=== PATIENT | male | born 1985 | race Caucasian/White ===

== ENCOUNTER 2020-01-07 22:22 | Observation (INO) | payer BC, OTHER ==
[~2020-01-07] VITALS: Ht 167.7 cm; Wt 104.3 kg
[2020-01-07] MEDS ORDERED: NS IV 1000 ML 1,000 ML IV SCH (22:35)
[2020-01-07 22:44] LABS: BASOPHILS % (AUTO) 0 % (0-10); EOSINOPHILS # (AUTO) 0.1 10^3/uL (0.0-0.3); EOSINOPHILS % (AUTO) 1 % (0-10); HEMATOCRIT 40 % (40-54); HEMOGLOBIN 14.4 G/DL (13.3-17.7); LYMPHOCYTES # (AUTO) 1.8 X 10^3 (1.0-4.0); LYMPHOCYTES % (AUTO) 23 % (12-44); MEAN CORPUSCULAR HEMOGLOBIN 31 PG (25-34); MEAN CORPUSCULAR HGB CONC 37 G/DL (32-36); MEAN CORPUSCULAR VOLUME 84 FL (80-99); MEAN PLATELET VOLUME 11.2 FL (7.4-10.4); MONOCYTES # (AUTO) 0.6 X 10^3 (0.0-1.0); MONOCYTES % (AUTO) 8 % (0-12); NEUTROPHILS # (AUTO) 5.6 X 10^3 (1.8-7.8); NEUTROPHILS % (AUTO) 69 % (42-75); PLATELET COUNT 193 10^3/uL (130-400); RED CELL DISTRIBUTION WIDTH 12.2 % (10.0-14.5); WHITE BLOOD COUNT 8.1 10^3/uL (4.3-11.0)
[2020-01-07 23:07] LABS: ALBUMIN 3.9 GM/DL (3.2-4.5)
[2020-01-07 23:08] LABS: CHLORIDE 97 MMOL/L (98-107); SODIUM 130 MMOL/L (135-145)
[2020-01-07 23:09] LABS: CALCIUM 8.8 MG/DL (8.5-10.1)
[2020-01-07 23:10] LABS: TOTAL PROTEIN 6.9 GM/DL (6.4-8.2)
[2020-01-07 23:11] LABS: CARBON DIOXIDE 19 MMOL/L (21-32)
[2020-01-07 23:12] LABS: BILIRUBIN,TOTAL 0.3 MG/DL (0.1-1.0)
[2020-01-07 23:13] LABS: ALKALINE PHOSPHATASE 139 U/L (40-136)
[2020-01-07 23:14] LABS: CREATININE SERUM 1.19 MG/DL (0.60-1.30); GLUCOSE 665 MG/DL (70-105)
[2020-01-07 23:15] LABS: BUN/CREATININE RATIO 9
[2020-01-07 23:16] LABS: ALANINE AMINOTRANSFERASE 38 U/L (0-55)
[2020-01-07 23:25] LABS: GFR ESTIMATED > 60
[2020-01-08] MEDS ORDERED: metFORMIN 500 MG (GLUCOPHAGE) TAB PO ONE (00:45)
--- NOTE | 2020-01-08 00:49 | ED General ---
General Chief Complaint: General Problems/Pain Stated Complaint: HIGH BLOOD SUGAR Nursing Triage Note: Patient ambulatory to ER room 7 with complaint of high blood sugar. Patient states he has no history of diabetes but this evening when his dad was checking his own blood sugar the patient decided to check his blood sugar and the reading was greater than 600. Patient denies any symptoms and states he feels just fine. Patient denies any recent illnesses. Nursing Sepsis Screen: No Definite Risk Source of Information: Patient Exam Limitations: No Limitations History of Present Illness Date Seen by Provider: Jan 07, 2020 Time Seen by Provider: 22:27 Initial Comments This 34-year-old gentleman presents to the emergency room with concerns about elevated blood sugar. He was checking his own blood sugar with his father's glucometer and found the initial blood sugar to be 357. He waited a little while and rechecked it. His glucometer then read "high". He denies any signs or symptoms of acute infectious illness. His only symptom was a little bit of increased urinary frequency during the day. Allergies and Home Medications Allergies Coded Allergies: No Known Drug Allergies (Unverified , 01/07/20) Patient Home Medication List Home Medication List Reviewed: Yes Review of Systems Review of Systems Constitutional: no symptoms reported EENTM: no symptoms reported Respiratory: no symptoms reported Cardiovascular: no symptoms reported Gastrointestinal: no symptoms reported Genitourinary: see HPI Musculoskeletal: no symptoms reported Skin: no symptoms reported Psychiatric/Neurological: No Symptoms Reported Hematologic/Lymphatic: No Symptoms Reported Immunological/Allergic: no symptoms reported Past Vhldmzv-Wpsomn-Rcvjgu Hx Past Med/Social Hx: Reviewed Nursing Past Med/Soc Hx Patient Social History Alcohol Use: Denies Use Recreational Drug Use: No Smoking Status: Current Everyday Smoker Type Used: Electronic/Vapor 2nd Hand Smoke Exposure: Yes Recent Foreign Travel: No Contact w/Someone Who Travel: No Recent Infectious Disease Expo: No Recent Hopitalizations: No Physical Abuse: No Sexual Abuse: No Mistreated: No Fear: No Immunizations Up To Date PED Vaccines UTD: Yes Seasonal Allergies Seasonal Allergies: No Past Medical History Surgeries: No Respiratory: No Cardiac: No Neurological: No Genitourinary: No Gastrointestinal: No Musculoskeletal: No Endocrine: No HEENT: No Cancer: No Psychosocial: No Integumentary: No Physical Exam Vital Signs Vital Signs - First Documented 01/07/20 22:30 Temp 37.4 Pulse 90 Resp 18 B/P (MAP) 144/87 (106) Pulse Ox 96 O2 Delivery Room Air Capillary Refill : Less Than 3 Seconds Height, Weight, BMI Height: '" Weight: lbs. oz. kg; 39.00 BMI Method: General Appearance: No Apparent Distress, WD/WN HEENT: PERRL/EOMI, Normal ENT Inspection, Pharynx Normal Neck: Normal Inspection, Carotid Bruit Respiratory: Chest Non Tender, Lungs Clear, Normal Breath Sounds, No Accessory Muscle Use Cardiovascular: Regular Rate, Rhythm, No Edema, No Murmur Extremity: Normal Inspection, No Pedal Edema Neurologic/Psychiatric: Alert, Oriented x3, No Motor/Sensory Deficits, Normal Mood/Affect, acoustical logging engineer II-XII Norm as Tested Progress/Results/Core Measures Suspected Sepsis Recent Fever Within 48 Hours: No Infection Criteria Present: None New/Unexplained Altered Menta: No Sepsis Screen: No Definite Risk SIRS Temperature: Pulse: 90 Respiratory Rate: 18 Laboratory Tests 01/07/20 22:38: White Blood Count 8.1 Blood Pressure 144 /87 Mean: 106 Laboratory Tests 01/07/20 22:38: Creatinine 1.19, Platelet Count 193, Total Bilirubin 0.3 Results/Orders Lab Results Laboratory Tests Test 01/07/20 22:32 01/07/20 22:38 01/07/20 23:39 01/08/20 00:00 Range/Units Glucometer > 600 *H 488 *H 70-110 MG/DL White Blood Count 8.1 4.3-11.0 10^3/uL Red Blood Count 4.71 4.35-5.85 10^6/uL Hemoglobin 14.4 13.3-17.7 G/DL Hematocrit 40 40-54 % Mean Corpuscular Volume 84 80-99 FL Mean Corpuscular Hemoglobin 31 25-34 PG Mean Corpuscular Hemoglobin Concent 37 H 32-36 G/DL Red Cell Distribution Width 12.2 10.0-14.5 % Platelet Count 193 130-400 10^3/uL Mean Platelet Volume 11.2 H 7.4-10.4 FL Neutrophils (%) (Auto) 69 42-75 % Lymphocytes (%) (Auto) 23 12-44 % Monocytes (%) (Auto) 8 0-12 % Eosinophils (%) (Auto) 1 0-10 % Basophils (%) (Auto) 0 0-10 % Neutrophils # (Auto) 5.6 1.8-7.8 X 10^3 Lymphocytes # (Auto) 1.8 1.0-4.0 X 10^3 Monocytes # (Auto) 0.6 0.0-1.0 X 10^3 Eosinophils # (Auto) 0.1 0.0-0.3 10^3/uL Basophils # (Auto) 0.0 0.0-0.1 10^3/uL Sodium Level 130 L 135-145 MMOL/L Potassium Level 4.0 3.6-5.0 MMOL/L Chloride Level 97 L 98-107 MMOL/L Carbon Dioxide Level 19 L 21-32 MMOL/L Anion Gap 14 5-14 MMOL/L Blood Urea Nitrogen 11 7-18 MG/DL Creatinine 1.19 0.60-1.30 MG/DL Estimat Glomerular Filtration Rate > 60 BUN/Creatinine Ratio 9 Glucose Level 665 *H 70-105 MG/DL Calcium Level 8.8 8.5-10.1 MG/DL Corrected Calcium 8.9 8.5-10.1 MG/DL Magnesium Level 2.0 1.6-2.4 MG/DL Total Bilirubin 0.3 0.1-1.0 MG/DL Aspartate Amino Transf (AST/SGOT) 16 5-34 U/L Alanine Aminotransferase (ALT/SGPT) 38 0-55 U/L Alkaline Phosphatase 139 H 40-136 U/L Total Protein 6.9 6.4-8.2 GM/DL Albumin 3.9 3.2-4.5 GM/DL Beta-Hydroxybutyrate (Chem panel) 0.09 0.00-0.27 MMOL/L Test 01/08/20 00:45 01/08/20 06:11 Range/Units Urine Color YELLOW Urine Clarity CLEAR Urine pH 5.5 5-9 Urine Specific [place] <=1.005 1.016-1.022 Urine Protein NEGATIVE NEGATIVE Urine Glucose (UA) 3+ H NEGATIVE Urine Ketones NEGATIVE NEGATIVE Urine Nitrite NEGATIVE NEGATIVE Urine Bilirubin NEGATIVE NEGATIVE Urine Urobilinogen 0.2 < = 1.0 MG/DL Urine Leukocyte Esterase NEGATIVE NEGATIVE Urine RBC (Auto) NEGATIVE NEGATIVE Urine RBC NONE /HPF Urine WBC NONE /HPF Urine Squamous Epithelial Cells RARE /HPF Urine Crystals NONE /LPF Urine Bacteria NEGATIVE /HPF Urine Casts NONE /LPF Urine Mucus NEGATIVE /LPF Urine Culture Indicated NO Glucometer 257 H 70-110 MG/DL My Orders Orders - JOS DAS MD Accucheck Stat ONCE (01/07/20 22:27) Cbc With Automated Diff (01/07/20 22:35) Comprehensive Metabolic Panel (01/07/20 22:35) Magnesium (01/07/20 22:35) Ua Culture If Indicated (01/07/20 22:35) Ns Iv 1000 Ml (Sodium Chloride 0.9%) (01/07/20 22:35) Ed Iv/Invasive Line Start (01/07/20 22:35) Hemoglobin A1c (01/07/20 22:35) Beta Hydroxybutyrate (01/07/20 22:35) Accucheck Stat ONCE (01/07/20 23:24) Metformin Tablet (Glucophage Tablet) (01/08/20 00:45) Insulin Level (01/08/20 00:53) Medications Given in ED Current Medications Medications Dose Ordered Sig/Janet Route Start Time Stop Time Status Last Admin Dose Admin Metformin HCl 500 mg ONCE ONCE PO 01/08/20 00:45 01/08/20 00:46 DC 01/08/20 02:26 500 MG Vital Signs/I&O 01/07/20 01/08/20 01/08/20 01/08/20 22:30 01:34 01:45 01:57 Temp 37.4 37.1 36.6 Pulse 90 92 86 Resp 18 16 16 B/P (MAP) 144/87 (106) 124/75 (106) 133/91 Pulse Ox 96 96 97 97 O2 Delivery Room Air Room Air Room Air Room Air 01/08/20 04:00 Temp 36.6 Pulse 80 Resp 24 B/P (MAP) 121/71 (88) Pulse Ox 97 O2 Delivery Room Air 01/08/20 00:00 Intake Total 1000 ml Balance 1000 ml Capillary Refill : Less Than 3 Seconds Blood Pressure Mean: 106 Point of Care Testing Finger Stick Blood Glucose: 488 Blood Glucose Action Taken: Dr. Das notified Progress Note : Progress Note Patient was treated with IV fluids and blood sugar was trending down. He was then given metformin. Options were discussed with Dr. Feliz and with patient regarding observation for dismissal home. Patient feels much more comfortable with admission for observation. Departure Communication (Admissions) Time/Spoke to Admitting Phy: 00:49 Dr. Feliz Impression Primary Impression: New onset type 2 diabetes mellitus Additional Impression: Hyperglycemia Disposition: 01 HOME, SELF-CARE Condition: Improved Admissions Decision to Admit Reason: Admit from ER (General) Decision to Admit/Date: Jan 08, 2020 Time/Decision to Admit Time: 00:49 Departure-Patient Inst. Decision time for Depature: 00:45 Referrals: NO,LOCAL PHYSICIAN (PCP/Family) Primary Care Physician Patient Instructions: Diabetes Diet , Type 2 Diabetes Add. Discharge Instructions: All discharge instructions reviewed with patient and/or family. Voiced understanding. JOS DAS MD Jan 08, 2020 00:49
[2020-01-08 00:56] LABS: BILIRUBIN,URINE NEGATIVE (NEGATIVE); CLARITY,URINE CLEAR; COLOR,URINE YELLOW; GLUCOSE, URINE (UA) 3+ (NEGATIVE); KETONES,URINE NEGATIVE (NEGATIVE); LEUKOCYTE ESTERASE ,URINE NEGATIVE (NEGATIVE); NITRITE,URINE NEGATIVE (NEGATIVE); PH,URINE 5.5 (5-9); PROTEIN,URINE NEGATIVE (NEGATIVE)
[2020-01-08 01:04] LABS: BACTERIA,URINE NEGATIVE /HPF; SQUAMOUS EPITHELIAL CELL,UR RARE /HPF
--- OUTSIDE RECORDS SUMMARY | 2020-01-08 01:17 | XMS REPORT ---
Author Author Reid JAVIER Organization [facility] Address [address] [place] [address] Care Team Providers Care Extrusion Process Operator Name Role Phone JOLANTA JAVIER Unavailable PROBLEMS Type Condition ICD9-CM Code [id number] Code Onset Dates Condition S tatus SNOMED Code Problem Chest pain, other 786.59 Active 29 698703 Problem Acute sinusitis, unspecified 461.9 A ctive 34028801 Problem Intestinal infection due to other organism, NEC 008.8 Active 15313923 Problem Wheezing 786.07 Active 25183823 Problem Throat pain 784.1 Active 30421682 3 Problem Influenza with other respiratory manifestations 487.1 Active 7522132 Problem Acute bronchitis 466.0 Active 105 34089 ALLERGIES No Information ENCOUNTERS Encounter Location Date Diagnosis [facility] [address] [facility] [id number] [address] [place] [phone] May, Encounter for physical exami nation of prospective adoptive parent Z02.82 ; BMI 40.0-44.9, adult Z68.41 and Screening for tuberculosis Z11.1 [facility] [address] [facility] [id number] [address] [place] [phone] Sep, [facility] [address] [facility] [id number] [address] [place] [phone] Sep, [facility] [address] [facility] [id number] [address] [place] [phone] October, [facility] [address] [facility] [id number] [address] [place] [phone] October, [facility] [address] [facility] [id number] [address] [place] [phone] Sep, [facility] [address] [facility] [id number] [address] [place] [phone] Sep, [facility] [address] [id number] [address] [place] [phone] Aug, [facility] [address] [id number] [address] [place] [phone] Aug, [facility] [address] [id number] [address] [place] [phone] Jun, [facility] [address] [id number] [address] [place] [phone] Jun, [facility] [address] [id number] [address] [place] [phone] Jun, [facility] [address] [id number] [address] [place] [phone] Jun, [facility] [address] [id number] [address] [place] [phone] Feb, [facility] [address] [id number] [address] [place] [phone] October, [facility] [address] [id number] [address] [place] [phone] October, [facility] [address] [id number] [address] [place] [phone] Jul, IMMUNIZATIONS No Known Immunizations SOCIAL HISTORY Never Assessed REASON FOR VISIT PLAN OF CARE VITAL SIGNS MEDICATIONS No Known Medications RESULTS No Results PROCEDURES Procedure Date Ordered Result Body Site INFLUENZA ASSAY W/OPTIC Jun 11, 2013 INSTRUCTIONS MEDICATIONS ADMINISTERED No Known Medications
--- OUTSIDE RECORDS SUMMARY | 2020-01-08 01:17 | XMS REPORT ---
Author Author Reid Stewart Organization [facility] Address [address] [place] [address] Care Team Providers Care Product Sales Engineer Name Role Phone RAHUL Stewart Unavailable PROBLEMS Type Condition ICD9-CM Code [id number]-UL Code Onset Dates Condition S tatus SNOMED Code Problem Chest pain, other 786.59 Active 29 576534 Problem Acute sinusitis, unspecified 461.9 A ctive 50296346 Problem Intestinal infection due to other organism, NEC 008.8 Active 80167329 Problem Wheezing 786.07 Active 70018592 Problem Throat pain 784.1 Active 25798065 3 Problem Influenza with other respiratory manifestations 487.1 Active 9871476 Problem Acute bronchitis 466.0 Active 105 02312 ALLERGIES No Information ENCOUNTERS Encounter Location Date Diagnosis [facility] [address] [address] May, Encounter for physical examination of pr ospective adoptive parent Z02.82 ; BMI 40.0-44.9, adult Z68.41 and Screening for tuberculosis Z11.1 [place] [address] [address] Sep, [facility] [address] [address] Sep, [facility] [address] [address] October, [facility] [address] [address] October, [facility] [address] [address] Sep, [facility] [address] [address] Sep, [facility] [address] [id number] [place] [address] Aug, [facility] [address] [id number] [place] [address] Aug, [facility] [address] [id number] [place] [address] Jun, [facility] [address] [id number] [place] [address] Jun, [facility] [address] [place] [id number] [place] [address] Jun, [facility] [address] [id number] [place] [address] Jun, [facility] [address] [id number] [place] [address] Feb, [facility] [address] [id number] [place] [address] October, [facility] [address] [id number] [place] [address] October, [facility] [address] [id number] [place] [address] Jul, IMMUNIZATIONS No Known Immunizations SOCIAL HISTORY Never Assessed REASON FOR VISIT PLAN OF CARE VITAL SIGNS Height 64 in 2013-09-06 Weight 224.31 lbs 2013-09-06 Temperature 97.8 degrees Fahrenheit 2013-09-06 Heart Rate 84 bpm 2013-09-06 Respiratory Rate 18 2013-09-06 Blood pressure systolic 136 mmHg 2013-09-06 Blood pressure diastolic 78 mmHg 2013-09-06 MEDICATIONS No Known Medications RESULTS No Results PROCEDURES No Known procedures INSTRUCTIONS MEDICATIONS ADMINISTERED No Known Medications
--- OUTSIDE RECORDS SUMMARY | 2020-01-08 01:17 | XMS REPORT ---
Author Author Reid Patricio Doctor Organization [facility] Address Unknown Phone Unavailable Care Team Providers Care Charge Entry Specialist Name Role Phone Migration, Doctor Unavailable Unavailable PROBLEMS Type Condition ICD9-CM Code [id number] Code Onset Dates Condition S tatus SNOMED Code Problem Chest pain, other 786.59 Active 29 301440 Problem Acute sinusitis, unspecified 461.9 A ctive 30062454 Problem Intestinal infection due to other organism, NEC 008.8 Active 89569999 Problem Wheezing 786.07 Active 82264737 Problem Throat pain 784.1 Active 45988886 3 Problem Influenza with other respiratory manifestations 487.1 Active 4056096 Problem Acute bronchitis 466.0 Active 105 24267 ALLERGIES Substance Reaction Event Type Date Status Celebrex Unknown Drug Allergy Sep, Active ENCOUNTERS Encounter Location Date Diagnosis [facility] [address] [place] [phone] May, Encounter for physical exami nation of prospective adoptive parent Z02.82 ; BMI 40.0-44.9, adult Z68.41 and Screening for tuberculosis Z11.1 [facility] [address] [place] [id number] [address] [place] [phone] Sep, [facility] [address] [place] [id number] [address] [place] [phone] Sep, [facility] [address] [place] [id number] [address] [place] [phone] October, [facility] [address] [place] [phone] October, [facility] [address] [place] [id number] [address] [place] [phone] Sep, [facility] [address] [place] [id number] [address] [place] [phone] Sep, [facility] [address] [facility] [id number] [address] [place] [phone] Aug, [facility] [address] [id number] [address] [place] [phone] Aug, [facility] [address] [id number] [address] [place] [phone] Jun, [facility] [address] [id number] [address] [place] [phone] Jun, [facility] [address] [id number] [address] [place] [phone] Jun, [facility] [address] [id number] [address] [place] [phone] Jun, [facility] [address] [id number] [address] [place] [phone] Feb, [facility] [address] [id number] [address] [place] [phone] October, [facility] [address] [id number] [address] [place] [phone] October, [facility] [address] [id number] [address] [place] [phone] Jul, IMMUNIZATIONS No Known Immunizations SOCIAL HISTORY Never Assessed REASON FOR VISIT [facility] PLAN OF CARE VITAL SIGNS MEDICATIONS Medication Instructions Dosage Frequency Start Date End Date Duration S tatus Ibuprofen 800 mg take 1 tablet (800 m g) by oral route 3 times per day with food Aug, Active Zithromax Z-Moustapha 250 mg 2 tablet by Oral route 1 time per day for 5 days on day 1 then take 1 tab daily on days 2-5 Feb, Active PredniSONE 10 mg 1 Tablet by Po route 2 times per day for 5 days Take at 8 am and noon. Aug, Active Flexeril 10 mg 1 tablet by Oral route 3 times per day PRN muscle spasm Aug, Active Azithromycin 250 mg 2 Tablet by Oral rou te on day 1 then take 1 daily for 4 days October, Active RESULTS No Results PROCEDURES No Known procedures INSTRUCTIONS MEDICATIONS ADMINISTERED No Known Medications
--- OUTSIDE RECORDS SUMMARY | 2020-01-08 01:17 | XMS REPORT ---
Author Author Reid Patricio Doctor Organization [facility] Address Unknown Phone Unavailable Care Team Providers Care Chemical Plant Operator Name Role Phone Migration, Doctor Unavailable Unavailable PROBLEMS Type Condition ICD9-CM Code [id number] Code Onset Dates Condition S tatus SNOMED Code Problem Chest pain, other 786.59 Active 29 799711 Problem Acute sinusitis, unspecified 461.9 A ctive 78050974 Problem Intestinal infection due to other organism, NEC 008.8 Active 43963458 Problem Wheezing 786.07 Active 56203100 Problem Throat pain 784.1 Active 75881846 3 Problem Influenza with other respiratory manifestations 487.1 Active 8306410 Problem Acute bronchitis 466.0 Active 105 45374 ALLERGIES No Information ENCOUNTERS Encounter Location Date Diagnosis [facility] [address] [facility] [id number] [address] [place] [address] May, Encounter for physical exami nation of prospective adoptive parent Z02.82 ; BMI 40.0-44.9, adult Z68.41 and Screening for tuberculosis Z11.1 [facility] [address] [id number] [address] [place] [phone] Sep, [facility] [address] [facility] [id number] [address] [place] [phone] Sep, [facility] [address] [id number] [address] [place] [phone] October, [facility] [address] [id number] [address] [place] [phone] October, [facility] [address] [facility] [id number] [address] [place] [phone] Sep, [facility] [address] [facility] [id number] [address] [place] [phone] Sep, [facility] [address] [facility] [id number] [address] [place] [phone] Aug, [facility] [address] [id number] [address] [place] [phone] Aug, [facility] [address] [id number] [address] [place] [address] Jun, [facility] [address] [id number] [address] [place] [phone] Jun, [facility] [address] [id number] [address] [place] [phone] Jun, [facility] [address] [id number] [address] [place] [phone] Jun, [facility] [address] [id number] [address] [place] [phone] Feb, [facility] [address] [id number] [address] [place] [phone] October, [facility] [address] [id number] [address] [place] [phone] October, [facility] [address] [id number] [address] [place] [phone] Jul, IMMUNIZATIONS No Known Immunizations SOCIAL HISTORY Never Assessed REASON FOR VISIT [facility] [place] PLAN OF CARE VITAL SIGNS MEDICATIONS No Known Medications RESULTS No Results PROCEDURES No Known procedures INSTRUCTIONS MEDICATIONS ADMINISTERED No Known Medications
--- OUTSIDE RECORDS SUMMARY | 2020-01-08 01:17 | XMS REPORT ---
Author Author Reid Patricio Doctor Organization [facility] Address Unknown Phone Unavailable Care Team Providers Care Director Of Revenue Cycle Management Name Role Phone Migration, Doctor Unavailable Unavailable PROBLEMS Type Condition ICD9-CM Code DXI59-MG Code Onset Dates Condition S tatus SNOMED Code Problem Influenza with other respiratory manifestations 487.1 Active 6673005 Problem Acute sinusitis, unspecified 461.9 A ctive 29719676 Problem Intestinal infection due to other organism, NEC 008.8 Active 88240355 Problem Chest pain, other 786.59 Active 29 190921 Problem Wheezing 786.07 Active 94904839 Problem Throat pain 784.1 Active 66364231 3 Problem Acute bronchitis 466.0 Active 105 65183 ALLERGIES No Information ENCOUNTERS Encounter Location Date Diagnosis [place] [address] [address] May, Encounter for physical examination of pr ospective adoptive parent Z02.82 ; BMI 40.0-44.9, adult Z68.41 and Screening for tuberculosis Z11.1 [place] [address] [address] Sep, [facility] [address] [address] Sep, [facility] [address] [address] October, [facility] [address] [address] October, [facility] [address] [address] Sep, [facility] [address] [address] Sep, [facility] [address] [address] Aug, [place] [address] [id number] [place] [address] Aug, [facility] [address] [id number] [place] [address] Jun, [facility] [address] [id number] [place] [address] Jun, [facility] [address] [id number] [place] [address] Jun, [facility] [address] [id number] [place] [address] Jun, [facility] [address] [id number] [place] [address] Feb, [facility] [address] [id number] [place] [address] October, [facility] [address] [id number] [place] [address] October, [facility] [address] [id number] [place] [address] Jul, IMMUNIZATIONS No Known Immunizations SOCIAL HISTORY Never Assessed REASON FOR VISIT PLAN OF CARE VITAL SIGNS Height 64 in 2013-11-01 Weight 221.3 lbs 2013-11-01 Temperature 97.4 degrees Fahrenheit 2013-11-01 Heart Rate 84 bpm 2013-11-01 Respiratory Rate 22 2013-11-01 Blood pressure systolic 122 mmHg 2013-11-01 Blood pressure diastolic 86 mmHg 2013-11-01 MEDICATIONS No Known Medications RESULTS No Results PROCEDURES No Known procedures INSTRUCTIONS MEDICATIONS ADMINISTERED No Known Medications
--- OUTSIDE RECORDS SUMMARY | 2020-01-08 01:17 | XMS REPORT ---
Author Author Reid BROWN [facility] Address [address] [place] [address] Care Team Providers Care Transferrer Name Role Phone MARIN BROWN Unavailable PROBLEMS Type Condition ICD9-CM Code RXL74-CB Code Onset Dates Condition S tatus SNOMED Code Problem Chest pain, other 786.59 Active 29 951319 Problem Acute sinusitis, unspecified 461.9 A ctive 31514923 Problem Intestinal infection due to other organism, NEC 008.8 Active 07177056 Problem Wheezing 786.07 Active 01895072 Problem Throat pain 784.1 Active 11164111 3 Problem Influenza with other respiratory manifestations 487.1 Active 8075958 Problem Acute bronchitis 466.0 Active 105 26816 ALLERGIES No Information ENCOUNTERS Encounter Location Date Diagnosis [place] [address] [address] May, Encounter for physical examination of pr ospective adoptive parent Z02.82 ; BMI 40.0-44.9, adult Z68.41 and Screening for tuberculosis Z11.1 [place] [address] [address] Sep, [facility] [address] [address] Sep, [facility] [address] [address] October, [facility] [address] [address] October, [facility] [address] [address] Sep, [facility] [address] [address] Sep, [place] [address] [id number] [place] [address] Aug, [facility] [address] [id number] [place] [address] Aug, [facility] [address] [id number] [place] [address] Jun, [facility] [address] [id number] [place] [address] Jun, [facility] [address] [place] [id number] [place] [address] Jun, [facility] [address] [id number] [place] [address] Jun, [facility] [address] [id number] [place] [address] Feb, [facility] [address] [id number] [place] [address] October, [facility] [address] [id number] [place] [address] October, [facility] [address] [id number] [place] [address] Jul, IMMUNIZATIONS No Known Immunizations SOCIAL HISTORY Never Assessed REASON FOR VISIT PLAN OF CARE VITAL SIGNS Height 64 in 2013-06-23 Temperature 99.6 degrees Fahrenheit 2013-06-23 Heart Rate 84 bpm 2013-06-23 Respiratory Rate 20 2013-06-23 Blood pressure systolic 129 mmHg 2013-06-23 Blood pressure diastolic 88 mmHg 2013-06-23 MEDICATIONS No Known Medications RESULTS No Results PROCEDURES Procedure Date Ordered Result Body Site INFLUENZA ASSAY W/OPTIC Jun 23, 2013 INSTRUCTIONS MEDICATIONS ADMINISTERED No Known Medications
--- OUTSIDE RECORDS SUMMARY | 2020-01-08 01:17 | XMS REPORT ---
Author Author Reid BROWN [facility] Address [address] [place] [address] Care Team Providers Care Ethnic Studies Professor Name Role Phone MARIN BROWN Unavailable PROBLEMS Type Condition ICD9-CM Code FTV54-XV Code Onset Dates Condition S tatus SNOMED Code Problem Chest pain, other 786.59 Active 29 807408 Problem Intestinal infection due to other organism, NEC 008.8 Active 54743066 Problem Acute sinusitis, unspecified 461.9 A ctive 37877153 Problem Throat pain 784.1 Active 35078822 3 Problem Wheezing 786.07 Active 91367853 Problem Acute bronchitis 466.0 Active 105 17267 Problem Influenza with other respiratory manifestations 487.1 Active 1027937 ALLERGIES Substance Reaction Event Type Date Status Celebrex Unknown Drug Allergy May, Active ENCOUNTERS Encounter Location Date Diagnosis [facility] [address] [facility] [id number] [address] [place] [address] May, Encounter for physical exami nation of prospective adoptive parent Z02.82 ; BMI 40.0-44.9, adult Z68.41 and Screening for tuberculosis Z11.1 [facility] [address] [facility] [id number] [address] [place] [address] Sep, [facility] [address] [facility] [id number] [address] [place] [address] Sep, [facility] [address] [facility] [id number] [address] [place] [address] October, [facility] [address] [facility] [id number] [address] [place] [address] October, [facility] [address] [facility] [id number] [address] [place] [address] Sep, [facility] [address] [facility] [id number] [address] [place] [address] Sep, [facility] [address] [id number] [address] [place] [address] Aug, [facility] [address] [id number] [address] [place] [address] Aug, [facility] [address] [id number] [address] [place] [address] Jun, [facility] [address] [id number] [address] [place] [address] Jun, [facility] [address] [id number] [address] [place] [address] Jun, [facility] [address] [id number] [address] [place] [address] Jun, [facility] [address] [id number] [address] [place] [address] Feb, [facility] [address] [id number] [address] [place] [address] October, [facility] [address] [id number] [address] [place] [address] October, [facility] [address] [id number] [address] [place] [address] Jul, IMMUNIZATIONS No Known Immunizations SOCIAL HISTORY Never Assessed REASON FOR VISIT Adoption Physical --ROSALINDA Talbert PLAN OF CARE Activity Details Follow Up prn Reason: VITAL SIGNS Height 64 in 2018-05-17 Weight 251.9 lbs 2018-05-17 Temperature 98.2 degrees Fahrenheit 2018-05-17 Heart Rate 78 bpm 2018-05-17 Respiratory Rate 18 2018-05-17 BMI 43.23 kg/m2 2018-05-17 Blood pressure systolic 118 mmHg 2018-05-17 Blood pressure diastolic 68 mmHg 2018-05-17 MEDICATIONS Medication Instructions Dosage Frequency Start Date End Date Duration S tatus Ibuprofen 800 mg take 1 tablet (800 m g) by oral route 3 times per day with food Aug, Active RESULTS No Results PROCEDURES Procedure Date Ordered Result Body Site TB INTRADERMAL 2018-05-17 N/A TB INTRADERMAL TEST May 17, 2018 INSTRUCTIONS MEDICATIONS ADMINISTERED No Known Medications
--- OUTSIDE RECORDS SUMMARY | 2020-01-08 01:17 | XMS REPORT ---
Author Author Reid Patricio Doctor Organization [facility] Address Unknown Phone Unavailable Care Team Providers Care Medication Coordinator Name Role Phone Migration, Doctor Unavailable Unavailable PROBLEMS Type Condition ICD9-CM Code NNE56-GT Code Onset Dates Condition S tatus SNOMED Code Problem Chest pain, other 786.59 Active 29 961822 Problem Acute sinusitis, unspecified 461.9 A ctive 47598561 Problem Intestinal infection due to other organism, NEC 008.8 Active 91198533 Problem Wheezing 786.07 Active 91364868 Problem Throat pain 784.1 Active 93518966 3 Problem Influenza with other respiratory manifestations 487.1 Active 4533611 Problem Acute bronchitis 466.0 Active 105 62246 ALLERGIES No Information ENCOUNTERS Encounter Location Date Diagnosis [facility] [address] [facility] [id number] [address] [place] [address] May, Encounter for physical exami nation of prospective adoptive parent Z02.82 ; BMI 40.0-44.9, adult Z68.41 and Screening for tuberculosis Z11.1 [facility] [address] [id number] [address] [place] [address] Sep, [facility] [address] [facility] [id number] [address] [place] [address] Sep, [facility] [address] [id number] [address] [place] [address] October, [facility] [address] [id number] [address] [place] [address] October, [facility] [address] [id number] [address] [place] [address] Sep, [facility] [address] [id number] [address] [place] [address] Sep, [facility] [address] [facility] [id number] [address] [place] [address] Aug, [facility] [address] [id number] [address] [place] [address] Aug, [facility] [address] [id number] [address] [place] [address] Jun, [facility] [address] [id number] [address] [place] [address] Jun, [facility] [address] [id number] [address] [place] [address] Jun, [facility] [address] [id number] [address] [place] [address] Jun, [facility] [address] [id number] [address] [place] [address] Feb, [facility] [address] [id number] [address] [place] [address] October, [facility] [address] [id number] [address] [place] [address] October, [facility] [address] [id number] [address] [place] [address] Jul, IMMUNIZATIONS No Known Immunizations SOCIAL HISTORY Never Assessed REASON FOR VISIT PLAN OF CARE VITAL SIGNS Height 64 in 2013-02-16 Weight 162.56 lbs 2013-02-16 Temperature 97.6 degrees Fahrenheit 2013-02-16 Heart Rate 100 bpm 2013-02-16 Respiratory Rate 16 2013-02-16 Blood pressure systolic 122 mmHg 2013-02-16 Blood pressure diastolic 79 mmHg 2013-02-16 MEDICATIONS No Known Medications RESULTS No Results PROCEDURES Procedure Date Ordered Result Body Site INJ METHYLPRDNISOLONE ACTAT 80 MG Feb 16, 2013 MEASURE BLOOD OXYGEN LEVEL Feb 16, 2013 INSTRUCTIONS MEDICATIONS ADMINISTERED No Known Medications
--- OUTSIDE RECORDS SUMMARY | 2020-01-08 01:17 | XMS REPORT ---
Author Author Reid Stewart Organization [facility] Address [address] [place] [address] Care Team Providers Care Technology Resource Teacher Name Role Phone RAHUL Stewart Unavailable PROBLEMS Type Condition ICD9-CM Code VBB46-BV Code Onset Dates Condition S tatus SNOMED Code Problem Chest pain, other 786.59 Active 29 508255 Problem Acute sinusitis, unspecified 461.9 A ctive 22536703 Problem Intestinal infection due to other organism, NEC 008.8 Active 07104818 Problem Wheezing 786.07 Active 12999443 Problem Throat pain 784.1 Active 22810959 3 Problem Influenza with other respiratory manifestations 487.1 Active 3391441 Problem Acute bronchitis 466.0 Active 105 83434 ALLERGIES No Information ENCOUNTERS Encounter Location Date Diagnosis [facility] [address] [address] May, Encounter for physical examination of pr ospective adoptive parent Z02.82 ; BMI 40.0-44.9, adult Z68.41 and Screening for tuberculosis Z11.1 [place] [address] [address] Sep, [facility] [address] [address] Sep, [facility] [address] [address] October, [facility] [address] [address] October, [facility] [address] [address] Sep, [facility] [address] [address] Sep, [facility] [address] [id number] [place] [address] Aug, [facility] [address] [id number] [place] [address] Aug, [facility] [address] [id number] [place] [address] Jun, [facility] [address] [id number] [place] [address] Jun, [facility] [address] [place] [id number] [place] [address] Jun, [facility] [address] [id number] [place] [address] Jun, [facility] [address] [id number] [place] [address] Feb, [facility] [address] [id number] [place] [address] October, [facility] [address] [id number] [place] [address] October, [facility] [address] [id number] [place] [address] Jul, IMMUNIZATIONS No Known Immunizations SOCIAL HISTORY Never Assessed REASON FOR VISIT PLAN OF CARE VITAL SIGNS Height 64 in 2013-09-01 Weight 229.5 lbs 2013-09-01 Temperature 96.2 degrees Fahrenheit 2013-09-01 Heart Rate 80 bpm 2013-09-01 Respiratory Rate 20 2013-09-01 Blood pressure systolic 148 mmHg 2013-09-01 Blood pressure diastolic 80 mmHg 2013-09-01 MEDICATIONS No Known Medications RESULTS No Results PROCEDURES No Known procedures INSTRUCTIONS MEDICATIONS ADMINISTERED No Known Medications
--- OUTSIDE RECORDS SUMMARY | 2020-01-08 01:18 | XMS REPORT | Continuity of Care Document ---
Author Organization Unknown Address Unknown Phone Unavailable Allergies Active Description Code Type Severity Reaction Onset Reported/Identified Relationship to Patient Clinical Status Yes Celebrex Drug Allergy N/A N/A 02/16/2013 Medications There is no data. Problems Date Dx Coded Attending Type Code Diagnosis Diagnosed By 07/13/2012 487.1 INFL UENZA 07/13/2012 487.1 INFL UENZA 07/13/2012 487.1 INFL UENZA 07/13/2012 LASHONDA LEE DO 487.1 INFLUENZA 07/13/2012 WILLIE MACKEY MD 487.1 INFLUENZA 07/13/2012 RAHUL ALLEN APRN 487.1 INFLUENZA 11/02/2012 008.8 GERI ROENTERITIS, VIRAL 11/02/2012 008.8 GERI ROENTERITIS, VIRAL 11/02/2012 LASHONDA LEE DO 008.8 GASTROENTERITIS, VIRAL 11/02/2012 WILLIE MACKEY MD 008.8 GASTROENTERITIS, VIRAL 11/02/2012 RAHUL ALLEN APRN 008.8 GASTROENTERITIS, VIRAL 11/04/2012 786.07 WHE EZING 11/04/2012 LASHONDA LEE DO 786.07 WHEEZING 11/04/2012 WILLIE MACKEY MD 786.0 7 WHEEZING 11/04/2012 RAHUL ALLEN APRN 786.07 WHEEZING 02/16/2013 LASHONDA LEE DO 466.0 BRONCHITIS, ACUTE 02/16/2013 WILLIE MACKEY MD 466.0 BRONCHITIS, ACUTE 02/16/2013 RAHUL ALLEN APRN 466.0 BRONCHITIS, ACUTE 06/11/2013 WILLIE MACKEY MD 784.1 THROAT PAIN 06/11/2013 RAHUL ALLEN APRN 784.1 THROAT PAIN 09/01/2013 RAHUL ALLEN APRN 786.59 OTHER CHEST PAIN Procedures Code [place] [address] INFL UENZA A & B (IN-HOUSE) 07/13/2012 32153 INFL UENZA A & B (IN-HOUSE) 06/11/2013 08882 INFL UENZA A & B (IN-HOUSE) 06/23/2013 Results There is no data. Encounters ACCT No. Visit Date/Time Discharge Status Pt. Type Provider Facility Loc./Unit Complaint [id number] 09/06/2013 10:28:00 09/06/2013 23:59: 59 CLS Outpatient RAHUL ALLEN APRN [id number] 06/23/2013 18:26:00 06/23/2013 23:59: 59 CLS Outpatient WILLIE MACKEY MD [id number] 06/11/2013 13:32:00 06/11/2013 23:59: 59 CLS Outpatient LASHONDA LEE DO [id number] 07/13/2012 12:18:00 07/13/2012 23:59: 59 CLS Outpatient [id number] 11/04/2012 11:07:00 Document Registration [id number] 11/02/2012 16:22:00 Document Registration [id number] 05/17/2018 15:20:00 05/17/2018 23:59:5 9 CLS [facility]
--- NOTE | 2020-01-08 01:30 | NUR ---
METFORMIN NOT AVAILABLE IN ER. MURRAY KEATING NOTIFIED AND WILL ADMIN TO PT ON ADMIT TO MEDICAL UNIT.
--- OUTSIDE RECORDS SUMMARY | 2020-01-08 01:36 | XMS REPORT | Continuity of Care Document ---
[...] Code Description [place] [address] INFL UENZA A & B (IN-HOUSE) 07/13/2012 38893 INFL UENZA A & B (IN-HOUSE) 06/11/2013 85081 INFL UENZA A & B (IN-HOUSE) 06/23/2013 Results There is no data. Encounters ACCT No. Visit Date/Time Discharge Status Pt. Type Provider Facility Loc./Unit Complaint [id number] 09/06/2013 10:28:00 09/06/2013 23:59: 59 CLS Outpatient RAHUL ALLEN APRN [id number] 06/23/2013 18:26:00 06/23/2013 23:59: 59 CLS Outpatient WILLIE MACKEY MD [id number] 06/11/2013 13:32:00 06/11/2013 23:59: 59 CLS Outpatient LASHONDA LEE DO [id number] 07/13/2012 12:18:00 07/13/2012 23:59: 59 CLS Outpatient [id number] 11/04/2012 11:07:00 Document Registration [id number] 11/02/2012 16:22:00 Document Registration [id number] 05/17/2018 15:20:00 05/17/2018 23:59:5 9 CLS [facility]
[2020-01-08] MEDS ORDERED: NS IV 1000 ML 1,000 ML ONE (01:38)
[2020-01-08] MEDS: NS IV 1000 ML 1,000 ML IV SCH ×3 (01:45→18:24)
--- NOTE | 2020-01-08 01:45 | NUR ---
THELMA CHAMPAGNE admitted to room 403-1, with an admitting diagnosis of NEW ONSET DM II AND HYPERGLYCEMIA, on 01/08/20 from ED VIA WHEELCHAIR, accompanied by STAFF .THELMA CHAMPAGNE introduced to surroundings, call light, bed controls, phone, TV, temperature control, lights, meal times, smoking policy, visitor policy, side rail policy, bathrooms and showers. Patient Rights given to patient in the handbook. THELMA CHAMPAGNE verbalizes understanding that [facility] is not responsible for the loss or damage to any personal effects or valuables that are kept in the patients posession during their hospitalization. THELMA CHAMPAGNE verbalizes understanding of Interdisciplinary Patient Education. Patient and/or family were informed about the Rapid Response Team and its purpose.
[2020-01-08 01:57] VITALS: BP 133/91
--- NOTE | 2020-01-08 02:26 | NUR ---
PT TOOK METFORMIN 500 MG PO AT THIS TIME PER ORDER D/T BEING UNAVAILABLE IN THE ED. THIS RN EDUCATED PT ON MEDICATION ACTIONS, ROUTE, FREQUENCY, AND SIDE EFFECTS. NO OTHER QUESTIONS OR CONCERNS AT THIS TIME.
[2020-01-08 04:00] VITALS: BP 121/71
[2020-01-08 07:34] VITALS: BP 128/85
[2020-01-08] MEDS: metFORMIN 500 MG (GLUCOPHAGE) TAB PO SCH ×3 (09:09→18:29)
[2020-01-08 11:03] VITALS: BP 120/81
--- NOTE | 2020-01-08 12:17 | History & Physical-Hospitalist ---
History of Present Illness HPI/Chief Complaint Pt is a 34yoCM who presented to the ER due to high blood sugar. He denies any history of diabetes but decided to check his blood sugar on his dad's glucometer and it read 357. He then ate and check it again and it read over 600. He recheck it and it read the same so he decided to seek care in the ER. This was confirmed on labs in the ER and he was mildly acidotic as well. He was given metformin in the ER. He denies any symptoms other than some urinary frequency. He does have a family history of diabetes but is unsure what type. Source: patient Date Seen 01/08/20 Time Seen by a Provider: 12:15 Attending Physician Duke Feliz MD PCP No,Local Physician Referring Physician Date of Admission Jan 08, 2020 at 00:57 Home Medications & Allergies Home Medications Reviewed patient Home Medication Reconciliation performed by pharmacy medication reconciliations materials technician and/or nursing. Patients Allergies have been reviewed. Allergies Allergies Coded Allergies No Known Drug Allergies (Unverified01/07/20) Past Nbvuirw-Fqvmzi-Jbdymv Hx Past Med/Social Hx: Reviewed Nursing Past Med/Soc Hx Patient Social History Alcohol Use: Denies Use Recreational Drug Use: No Smoking Status: Current Everyday Smoker Type Used: Electronic/Vapor 2nd Hand Smoke Exposure: Yes Recent Foreign Travel: No Contact w/other who traveled: No Recent Hopitalizations: No Recent Infectious Disease Expo: No Immunizations Up To Date Pediatric: Yes Date of Pneumonia Vaccine: Jan 07, 2011 Seasonal Allergies Seasonal Allergies: No Family History Reviewed Nursing Family Hx Diabetes mellitus G8 BROTHER (PATIENT A POOR HISTORIAN. UNABLE TO RECALL INFORMATION.) Review of Systems Constitutional: No chills, No fever EENTM: No blurred vision, No double vision Respiratory: No cough, No short of breath Cardiovascular: No chest pain, No palpitations Gastrointestinal: No nausea, No vomiting Genitourinary: No decreased output, No dysuria; frequency Musculoskeletal: no symptoms reported Skin: no symptoms reported Psychiatric/Neurological: No Symptoms Reported Physical Exam Physical Exam Vital Signs Vital Signs - First Documented 01/07/20 22:30 Temp 37.4 Pulse 90 Resp 18 B/P (MAP) 144/87 (106) Pulse Ox 96 O2 Delivery Room Air Capillary Refill : Less Than 3 Seconds Height, Weight, BMI Height: '" Weight: lbs. oz. kg; 37.15 BMI Method: General Appearance: No Apparent Distress, WD/WN, Obese HEENT: PERRL/EOMI, Moist Mucous Membranes Neck: Normal Inspection, Supple Respiratory: Lungs Clear, No Accessory Muscle Use, No Respiratory Distress Cardiovascular: Regular Rate, Rhythm, No Murmur Gastrointestinal: Normal Bowel Sounds, Non Tender, Soft Extremity: No Calf Tenderness, No Pedal Edema Neurologic/Psychiatric: Alert, Oriented x3, Normal Mood/Affect Skin: Normal Color, Warm/Dry Results Results/Procedures Labs Laboratory Tests 01/07/20 22:38 Patient resulted labs reviewed. Assessment/Plan Admission Diagnosis New onset diabetes Admission Status: Observation Assessment and Plan New onset diabetes insulin level pending Likely type 2 diabetes but on the cusp Continue Metformin for now A1c pending Will add sliding scale insulin professional services consultant consult as will likely need insulin on DC and listed as self pay so will need help with supplies Clinical Quality Measures DVT/VTE Risk/Contraindication: Risk Factor Score Per Nursin RFS Level Per Nursing on Admit: 1=Low/No VTE PPX DUKE FELIZ MD Jan 08, 2020 12:17
[2020-01-08] MEDS ORDERED: CATHETER FLUSH 10 ML SYR IV PRN (12:45)
[2020-01-08 16:00] VITALS: BP 121/84
[2020-01-08] MEDS ORDERED: BENZONATATE 100 MG (TESSALON) CAPSULE PO PRN (17:00)
[2020-01-08] MEDS ORDERED: MELATONIN 3 MG TABLET PO PRN (17:00)
[2020-01-08] MEDS ORDERED: ONDANSETRON 4 MG/2 ML (SDV) Z0FRAN IV PRN (17:00)
[2020-01-08] MEDS ORDERED: ACETAMINOPHEN 325 MG TABLET PO PRN (17:00)
[2020-01-08] MEDS ORDERED: MILK OF MAGNESIA 400 MG/5 ML 30 ML UDC PO PRN (17:00)
[2020-01-08] MEDS ORDERED: ANTACID SUSP 30 ML UDC (MYLANTA) PO PRN (17:00)
[2020-01-08] MEDS: inSUlin ASPART (NovoLOG) 1 UNIT/0.01 ML (CHARGE PER UNIT) SC SCH ×2 (17:13→20:56)
[2020-01-08 20:00] VITALS: BP 140/89
[2020-01-09 00:40] VITALS: BP 136/86
[2020-01-09] MEDS: NS IV 1000 ML 1,000 ML IV SCH ×2 (03:45→09:45)
[2020-01-09 04:45] VITALS: BP 122/81
[2020-01-09 06:09] LABS: CHLORIDE 106 MMOL/L (98-107); POTASSIUM 4.1 MMOL/L (3.6-5.0); SODIUM 137 MMOL/L (135-145)
[2020-01-09 06:11] LABS: CALCIUM 8.6 MG/DL (8.5-10.1); GLUCOSE 175 MG/DL (70-105)
[2020-01-09 06:12] LABS: CARBON DIOXIDE 22 MMOL/L (21-32)
[2020-01-09 06:15] LABS: GFR ESTIMATED > 60
[2020-01-09 06:16] LABS: BUN/CREATININE RATIO 13
[2020-01-09] MEDS: inSUlin ASPART (NovoLOG) 1 UNIT/0.01 ML (CHARGE PER UNIT) SC SCH (06:25)
[2020-01-09 07:39] VITALS: BP 138/84
[2020-01-09] MEDS: metFORMIN 500 MG (GLUCOPHAGE) TAB PO SCH (08:42)
[2020-01-09 08:57] LABS: CHOLESTEROL 223 MG/DL (< 200); HDL CHOLESTEROL 29 MG/DL (40-60); TRIGLYCERIDES 626 MG/DL (<150)
[2020-01-09] MEDS ORDERED: lisINopril 10 MG (PRINIVIL) TABLET PO SCH (09:00)
[2020-01-09] MEDS ORDERED: METF-397 PO (11:09)
[2020-01-09] MEDS ORDERED: ATOR40TA PO (11:12)
[2020-01-09 11:16] VITALS: BP 129/80
--- NOTE | 2020-01-09 13:29 | NUR ---
ANNIA/ADRIÁN visited with the patient for social service discount. Plan: The patient will return home with two new medications of the $4 dollar [facility] list. ANNIA/ADRIÁN spoke with physician to coordinate what medications and supplies were needed at this time. The physician reported the patient will not need a glucometer or strips at this time. The physician plans to send him home with the two medications. No further supplies needed. ANNIA/ADRIÁN spoke with the patient about getting set up with a primary care physician. ANNIA/ADRIÁN informed the patient that [facility] had a pharmacy that helps with the cost of diabetic supplies. He verbalized understanding. ANNIA/ADRIÁN informed the nurse that the patient will need an appointment in one week at the [facility] to get established. The patient reports that he does have insurance; however, he did not have his card. His place of employment is [employer]. ANNIA/ADRIÁN contacted Registration to inform them. They will follow up. No further needs at this time.
--- NOTE | 2020-01-09 13:36 | NUR ---
"RD ASSESSMENT PMHx: no significant PMH; new onset DM PT INTERACTION: Pt was awake and pleasant during nutrition assessment. Pt states current appetite is good, and was prior to admit. Note avg PO intake 100% x1d, per chart review. Pt states following a regular diet at home, and has no issues with chewing/swallowing food. Pt states no recent issues with nausea, vomiting, constipation, or diarrhea. Note last Bm was 8/2 and pt not currently on bowel regimen per chart review. Pt states recent 20# wt loss, but unsure of timeframe. Note unable to determine recent wt hx, per chart review. Pt states recent diagnosis of DM and had questions about diet changes. ABNORMAL NUTRITION-RELATED LAB VALUES LOW: HIGH: glu 175 Est. kcal needs: 1575 kcal | 15 kcal/kg Est. Pro needs: 83 g Pro | 0.8 g Pro/kg PES STATEMENT: Food- and nutrition-related knowledge deficit (NB-1.1) related to lack of prior nutrition-related education as evidenced by no prior need of food- and nutrition-related recommendations (new onset of DM) INTERVENTION: Continue current diet order of CHO 75g/m 0snack diet. Discussed and provided diet education on DM management. Provided handout on CHO counting. Discussed portion control, fiber intake, and smartphone applications. Pt verbalized understanding of information provided. Will continue to follow and reassess as pt needs, intake, and status change. MONITOR/EVALUATE: PO Intake; Plan of Care; Hydration Status; Weight Status; Lab Values Rossana Ramsey, MS, RD, LD"
--- OUTSIDE RECORDS SUMMARY | 2020-01-10 12:27 | XMS REPORT | Continuity of Care Document ---
Author Organization Unknown Address Unknown Phone Unavailable Allergies Active Description Code Type Severity Reaction Onset Reported/Identified Relationship to Patient Clinical Status Yes Celebrex Drug Allergy N/A N/A 02/16/2013 Yes No Known Drug Allergies [id number] Drug Allergy Unknown N/A 01/07/2020 Medications There is no data. Problems Date [...] Code Description [place] [id number] INFL UENZA A & B (IN-HOUSE) 07/13/2012 [id number] INFL UENZA A & B (IN-HOUSE) 06/11/2013 [id number] INFL UENZA A & B (IN-HOUSE) 06/23/2013 Results Test Result Range Capillary blood glucose measurement by g lucometer (mass/volume) - 01/07/20 22:32 Capillary blood glucose measurement by glucometer (mas s/volume) > mg/dL 70-110 Complete blood count (CBC) with automate d white blood cell (WBC) differential - 01/07/20 22:38 Blood leukocytes automated count (number/volume) 8.1 10*3/uL 4.3-11.0 Blood erythrocytes automated count (number/volume) 4.71 10*6/uL 4.35-5.85 Venous blood hemoglobin measurement (mass/volume) 14.4 g/dL 13.3-17.7 Blood hematocrit (volume fraction) 40 % 40-54 Automated erythrocyte mean corpuscular volume 84 [ foz_us] 80-99 Automated erythrocyte mean corpuscular h emoglobin (mass per erythrocyte) 31 pg 25-34 Automated erythrocyte mean corpuscular h emoglobin concentration measurement (mass/volume) 37 g/dL 32-36 Automated erythrocyte distribution width ratio 12. 2 % 10.0- 14.5 Automated blood platelet count (count/volume) 193 10*3/uL 130-400 Automated blood platelet mean volume measurement 11.2 [foz_us] 7.4-10.4 Automated blood neutrophils/100 leukocytes 69 % 42-75 Automated blood lymphocytes/100 leukocytes 23 % 12-44 Blood monocytes/100 leukocytes 8 % 0-12 Automated blood eosinophils/100 leukocytes 1 % 0-10 Automated blood basophils/100 leukocytes 0 % 0-10 Blood neutrophils automated count (number/volume) 5.6 10*3 1.8-7.8 Blood lymphocytes automated count (number/volume) 1.8 10*3 1.0-4.0 Blood monocytes automated count (number/volume) 0. 6 10*3 0.0-1.0 Automated eosinophil count 0.1 10*3/uL 0 .0-0.3 Automated blood basophil count (count/volume) 0.0 10*3/uL 0.0-0.1 Comprehensive metabolic panel - 01/07/20 22:38 Serum or plasma sodium measurement (moles/volume) 130 mmol/L 135-145 Serum or plasma potassium measurement (moles/volume) 4.0 mmol/L 3.6-5.0 Serum or plasma chloride measurement (moles/volume) 97 mmol/L 98-107 Carbon dioxide 19 mmol/L 21-32 Serum or plasma anion gap determination (moles/volume) 14 mmol/L 5-14 Serum or plasma urea nitrogen measurement (mass/volume ) 11 mg/dL 7-18 Serum or plasma creatinine measurement (mass/volume) 1.19 mg/dL 0.60-1.30 Serum or plasma urea nitrogen/creatinine mass ratio 9 NRG Serum or plasma creatinine measurement w ith calculation of estimated glomerular filtration rate > NRG Serum or plasma glucose measurement (mass/volume) 665 mg/dL 70-105 Serum or plasma calcium measurement (mass/volume) 8.8 mg/dL 8.5-10.1 Serum or plasma total bilirubin measurement (mass/volu me) 0.3 mg/dL 0.1-1.0 Serum or plasma alkaline phosphatase mp surement (enzymatic activity/volume) 139 U/L 40-136 Serum or plasma aspartate aminotransfera se measurement (enzymatic activity/volume) 16 U/L 5-34 Serum or plasma alanine aminotransferase measurement (enzymatic activity/volume) 38 U/L 0-55 Serum or plasma protein measurement (mass/volume) 6.9 g/dL 6.4-8.2 Serum or plasma albumin measurement (mass/volume) 3.9 g/dL 3.2-4.5 CALCIUM CORRECTED 8.9 mg/dL 8.5-10.1 Magnesium - 01/07/20 22:38 Magnesium 2.0 mg/dL 1.6-2.4 Beta-hydroxybutyric acid measurement - 0 01/07/20 22:38 Beta-hydroxybutyric acid measurement 0.09 mmol/L 0.00-0.27 Hemoglobin A1c measurement - 01/07/20 22 :38 Blood hemoglobin A1C measurement (mass/volume) 12. 3 % 4.0- 5.6 MEAN BLOOD GLUCOSE 306 % <=126 Capillary blood glucose measurement by g lucometer (mass/volume) - 01/07/20 23:39 Capillary blood glucose measurement by glucometer (mas s/volume) 488 mg/dL 70-110 Serum or plasma insulin measurement (uni ts/volume) - 01/08/20 00:00 INSULIN SERUM 25.8 m[iU]/L 6.0-24.0 Complete urinalysis with reflex to cultu re - 01/08/20 00:45 Urine color determination YELLOW NRG Urine clarity determination CLEAR NR G Urine pH measurement by test strip 5.5 5-9 Specific gravity of urine by test strip <= 1.016-1.022 Urine protein assay by test strip, semi-quantitative NEGATIVE NEGATIVE Urine glucose detection by automated test strip 3+ NEGATIVE Erythrocytes detection in urine sediment by light micr oscopy NEGATIVE NEGATIVE Urine ketones detection by automated test strip NE GATIVE NEGATIVE Urine nitrite detection by test strip NEGATIVE NEGATIVE Urine total bilirubin detection by test strip NEGA TIVE NEGATIVE Urine urobilinogen measurement by automated test strip (mass/volume) 0.2 mg/dL < = 1.0 Urine leukocyte esterase detection by dipstick NEG ATIVE NEGATIVE Automated urine sediment erythrocyte cou nt by microscopy (number/high power field) NONE NRG Automated urine sediment leukocyte count by microscopy (number/high power field) NONE NRG Bacteria detection in urine sediment by light microsco py NEGATIVE NRG Squamous epithelial cells detection in u rine sediment by light microscopy RARE NRG Crystals detection in urine sediment by light microsco py NONE NRG Casts detection in urine sediment by light microscopy NONE NRG Mucus detection in urine sediment by light microscopy NEGATIVE NRG Complete urinalysis with reflex to culture NO NRG Capillary blood glucose measurement by g lucometer (mass/volume) - 01/08/20 06:11 Capillary blood glucose measurement by glucometer (mas s/volume) 257 mg/dL 70-110 Capillary blood glucose measurement by g lucometer (mass/volume) - 01/08/20 09:31 Capillary blood glucose measurement by glucometer (mas s/volume) 330 mg/dL 70-110 Capillary blood glucose measurement by g lucometer (mass/volume) - 01/08/20 14:34 Capillary blood glucose measurement by glucometer (mas s/volume) 326 mg/dL 70-110 Capillary blood glucose measurement by g lucometer (mass/volume) - 01/08/20 15:45 Capillary blood glucose measurement by glucometer (mas s/volume) 323 mg/dL 70-110 Capillary blood glucose measurement by g lucometer (mass/volume) - 01/08/20 20:18 Capillary blood glucose measurement by glucometer (mas s/volume) 227 mg/dL 70-110 Whole blood basic metabolic panel - 08/25 05:16 Serum or plasma sodium measurement (moles/volume) 137 mmol/L 135-145 Serum or plasma potassium measurement (moles/volume) 4.1 mmol/L 3.6-5.0 Serum or plasma chloride measurement (moles/volume) 106 mmol/L 98-107 Carbon dioxide 22 mmol/L 21-32 Serum or plasma anion gap determination (moles/volume) 9 mmol/L 5-14 Serum or plasma urea nitrogen measurement (mass/volume ) 10 mg/dL 7-18 Serum or plasma creatinine measurement (mass/volume) 0.80 mg/dL 0.60-1.30 Serum or plasma urea nitrogen/creatinine mass ratio 13 NRG Serum or plasma creatinine measurement w ith calculation of estimated glomerular filtration rate > NRG Serum or plasma glucose measurement (mass/volume) 175 mg/dL 70-105 Serum or plasma calcium measurement (mass/volume) 8.6 mg/dL 8.5-10.1 Lipid 1996 panel - 01/09/20 05:16 Serum or plasma triglyceride measurement (mass/volume) 626 mg/dL <150 Serum or plasma cholesterol measurement (mass/volume) 223 mg/dL < 200 Serum or plasma cholesterol in HDL measurement (mass/v olume) 29 mg/dL 40-60 Cholesterol in LDL [mass/volume] in serum or plasma by direct assay 104 mg/dL 1-129 Serum or plasma cholesterol in VLDL measurement (mass/ volume) TNP 5-40 Capillary blood glucose measurement by g lucometer (mass/volume) - 01/09/20 10:50 Capillary blood glucose measurement by glucometer (mas s/volume) 294 mg/dL 70-110 Encounters ACCT No. Visit Date/Time Discharge Status Pt. Type Provider Facility Loc./Unit Complaint [id number] 09/06/2013 10:28:00 09/06/2013 23:59: 59 CLS Outpatient RAHUL ALLEN APRN [id number] 06/23/2013 18:26:00 06/23/2013 23:59: 59 CLS Outpatient WILLIE MACKEY MD [id number] 06/11/2013 13:32:00 06/11/2013 23:59: 59 CLS Outpatient LASHONDA LEE DO [id number] 07/13/2012 12:18:00 07/13/2012 23:59: 59 CLS Outpatient [id number] 11/04/2012 11:07:00 Document Registration [id number] 11/02/2012 16:22:00 Document Registration [id number] 05/17/2018 15:20:00 05/17/2018 23:59:5 9 CLS Outpatient KAY GENTILE [facility] [id number] 01/07/2020 22:24:00 020 10:27:00 DIS Inpatient FERNANDO HUYNH, [facility] NEW ONSET DM II,HYPERGL YCEMIA
--- NOTE | 2020-01-13 15:09 | Discharge Summary ---
Discharge Summary Hospital Course Was the Problem List Reviewed?: Yes Problems/Dx: (1) Type 2 diabetes mellitus with hyperglycemia Status: Acute Qualifiers: Qualified Codes: E11.65 - Type 2 diabetes mellitus with hyperglycemia (2) Elevated blood pressure reading Status: Acute (3) Hyperlipidemia Status: Acute (4) Obesity Status: Chronic Qualifiers: (5) Metabolic syndrome Status: Chronic Hospital Course Date of Admission: Jan 07, 2020 at 22:24 Admission Diagnosis : Type II diabetes mellitus with hyperglycemia Family Physician/Provider: Kimberley,Local Physician Date of Discharge: 01/13/20 Discharge Diagnosis: Type II diabetes mellitus with hyperglycemia Hospital Course: Reid Lopez is a 34-year-old male who presented with hyperglycemia and was diagnosed with type II diabetes mellitus. He was started on metformin and his blood sugars improved. A lipid panel revealed hyperlipidemia and he was started on Lipitor. He had a some elevated blood pressure readings but was not started on any antihypertensives. If his blood pressure is persistently elevated, would recommend starting an JAY inhibitor. He needs to establish care with a primary care physician. He plans to establish at [facility]. He was started on metformin and was instructed to titrate up the dose to 1000 mg twice daily as tolerated. He may require insulin therapy as well. He was discharged home in stable condition. Labs and Pending Lab Test: Home Meds Active Lipitor (Atorvastatin Calcium) 40 Mg Tablet 40 Mg PO HS 30 Days Metformin HCl 500 Mg Tablet 1,000 Mg PO BID 30 Days TAKE 500 MG TWICE DAILY FOR ONE WEEK, THEN INCREASE TO 1000 MG TWICE DAILY Assessment/Pt Instructions Take medications as prescribed. You have been diagnosed with diabetes. You should start taking metformin as directed. You're also being started on a statin for hyperlipidemia. You need to establish care with a primary care physician. Discharge Planning: <30 minutes discharge planning Discharge Instructions Discharge Diet: ADA Diet Activity as Tolerated: Yes Discharge Physical Examination Vital Signs Vital Signs Date Time Temp Pulse Resp B/P (MAP) Pulse Ox O2 Delivery O2 Flow Rate FiO2 01/09/20 12:06 01/09/20 11:16 36.6 78 16 98 Room Air General Appearance: No Apparent Distress, Obese HEENT: PERRL/EOMI, Pharynx Normal Respiratory: Lungs Clear, Normal Breath Sounds, No Respiratory Distress Cardiovascular: Regular Rate, Rhythm, No Edema, No Murmur Gastrointestinal: Normal Bowel Sounds, Non Tender, Soft Extremity: Normal Inspection, Non Tender, No Pedal Edema Skin: Normal Color, Warm/Dry Neurologic/Psychiatric: Alert, Oriented x3, No Motor/Sensory Deficits, Normal Mood/Affect Allergies: Coded Allergies: No Known Drug Allergies (Unverified , 01/07/20) Copy Copies To 1: [facility] [place] Discharge Summary Date of Admission Jan 07, 2020 at 22:24 Date of Discharge Jan 09, 2020 at 10:27 Discharge Date: Jan 09, 2020 Discharge Time: 10:27 Admission Diagnosis Type II diabetes mellitus with hyperglycemia Discharge Diagnosis (1) Type 2 diabetes mellitus with hyperglycemia Status: Acute Qualifiers: Qualified Codes: E11.65 - Type 2 diabetes mellitus with hyperglycemia (2) Metabolic syndrome Status: Chronic (3) Elevated blood pressure reading Status: Acute (4) Obesity Status: Chronic Qualifiers: (5) Hyperlipidemia Status: Acute Clinical Quality Measures DVT/VTE Risk/Contraindication: Risk Factor Score Per Nursin RFS Level Per Nursing on Admit: 1=Low/No VTE PPX BON GRAFF MD Jan 13, 2020 15:09
== END 2020-01-09 10:27 | disposition home or self-care (01) ==
LOC: EDUNIT# 22:22 → ER 22:23 → 4TH 22:24 → UNDOADMOB 01-08 00:57 → 4TH 01-08 00:57 → UNDODISOB 01-09 12:27
PROVIDERS: ADMIT Family Medicine; ATTEND Family Medicine
DX: E11.9 Type 2 diabetes mellitus without complications (principal); F17.290 Nicotine dependence, other tobacco product, uncomplicated; Z79.4 Long term (current) use of insulin
CPT/HCPCS: 80048; 80053; 80061; 81000; 82010; 82962 ×3; 83036; 83525; 83735; 85025; 96360; 99284; G0378; 36415

== ENCOUNTER → 2021-04-02 | Outpatient (REF) ==
[~2021-04-02] MED LIST: ATOR40TA PO; METF-397 PO
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
== END ==
LOC: OCC 09:50
PROVIDERS: ATTEND Family Medicine
DX: S89.91XA Unspecified injury of right lower leg, initial encounter (principal); X58.XXXA Exposure to other specified factors, initial encounter
CPT/HCPCS: 73590

== ENCOUNTER 2023-01-06 01:09 | Emergency (ER) | payer BC, OTHER ==
[~2023-01-06] VITALS: Ht 165.1 cm; Wt 107.0 kg
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
[2023-01-06] MEDS ORDERED: NS IV 1000 ML 1,000 ML IV STA (01:19)
[2023-01-06 01:28] LABS: BASOPHILS % (AUTO) 0 % (0-10); EOSINOPHILS % (AUTO) 0 % (0-10); HEMATOCRIT 42 % (40-54); HEMOGLOBIN 14.9 g/dL (13.3-17.7); LYMPHOCYTES % (AUTO) 9 % (12-44); MEAN CORPUSCULAR HEMOGLOBIN 31 pg (25-34); MEAN CORPUSCULAR HGB CONC 36 g/dL (32-36); MEAN CORPUSCULAR VOLUME 87 fL (80-99); MEAN PLATELET VOLUME 10.5 fL (9.0-12.2); MONOCYTES # (AUTO) 1.5 10^3/uL (0.0-1.0); MONOCYTES % (AUTO) 14 % (0-12); NEUTROPHILS # (AUTO) 8.1 10^3/uL (1.8-7.8); NEUTROPHILS % (AUTO) 76 % (42-75); PLATELET COUNT 177 10^3/uL (130-400); WHITE BLOOD COUNT 10.7 10^3/uL (4.3-11.0)
[2023-01-06 01:36] LABS: ALBUMIN 4.2 GM/DL (3.2-4.5)
[2023-01-06 01:37] LABS: POTASSIUM 3.8 MMOL/L (3.6-5.0)
[2023-01-06 01:38] LABS: CALCIUM 9.3 MG/DL (8.5-10.1)
[2023-01-06 01:39] LABS: TOTAL PROTEIN 7.5 GM/DL (6.4-8.2)
[2023-01-06 01:41] LABS: BILIRUBIN,TOTAL 1.2 MG/DL (0.1-1.0)
[2023-01-06 01:43] LABS: CREATININE SERUM 1.28 MG/DL (0.60-1.30)
[2023-01-06 01:45] LABS: MAGNESIUM 1.9 MG/DL (1.6-2.4)
[2023-01-06] MEDS ORDERED: ALBU18HF2 INH (02:18)
[2023-01-06 02:29] VITALS: BP 106/68
[2023-01-06] MEDS ORDERED: dexAMETHasone INJ 10 MG/ML 1 ML VIAL IV ONE (02:30)
--- NOTE | 2023-01-06 07:36 | Diagnostic Imaging Report ---
INDICATION: Cough. COMPARISON: None available. TECHNIQUE: Frontal and lateral radiograph of the chest dated 01/06/2023 FINDINGS: The cardiac silhouette is within normal limits in size. No significant pulmonary vascular congestion. The lungs are clear. No pleural effusion. No pneumothorax. Bilateral nipple ornamentation is present. No acute osseous abnormality. IMPRESSION: No acute cardiopulmonary abnormality. Dictated by: Dictated on workstation # [id number]
[2023-01-07] MEDS ORDERED: AZIT250T12 PO (15:30)
== END 2023-01-06 02:29 | disposition home or self-care (01) ==
LOC: EDUNIT# 01:09 → ER 01:12
DX: J40 Bronchitis, not specified as acute or chronic (principal); R79.82 Elevated C-reactive protein (CRP); F17.290 Nicotine dependence, other tobacco product, uncomplicated; Z20.822 Contact with and (suspected) exposure to COVID-19
CPT/HCPCS: 36415; 71046; 80053; 83735; 85025; 86141; 87430; 87636; 96361; 96374

== ENCOUNTER 2023-01-07 13:59 | Emergency (ER) | payer OTHER ==
[~2023-01-07 13:59] MED LIST changes: +ALBU18HF2 INH
[2023-01-07] MEDS ORDERED: NS IV 1000 ML 1,000 ML IV STA (14:18)
--- NOTE | 2023-01-07 14:23 | ED Cough/URI ---
General Chief Complaint: Fever-Adult/Adol Stated Complaint: VOMITING | FEVER | Nursing Triage Note: PT TO RM 9 PER W/C PT HAS FEVER TODAY, HAS BEEN SICK SINCE THURSDAY. PT HAS COUGH, SORETHROAT FROM COUGHING, VOMITED ONCE. Source: patient Exam Limitations: no limitations History of Present Illness Date Seen by Provider: Jan 07, 2023 Time Seen by Provider: 14:20 Initial Comments Patient is a 37-year-old male who presents the ED with flulike symptoms. Symptoms started 2 days ago. Reports feeling hot with chills, sore throat, coughing, shortness of breath, headache and feeling weak. Patient states he was seen here yesterday diagnosed with a viral bronchitis. Was discharged with albuterol inhaler which she has been using. Did receive a steroid shot here and states symptoms never really improved. Did receive a liter of fluid. Patient did go to work last night came home according to mother patient looked pale and seemed to be worse today and wanted to get him reevaluated. No one else at home with similar symptoms. Patient reports diffuse body pains at this time. States he is continue having a wet productive cough with shortness of breath with a cough. Denies of any specific chest pain. Generalized abdominal pain. Vomited a few times today secondary to the coughing. No diarrhea. Generalized head pain with sore throat. Denies ear pain, neck pain, dysuria, hematuria, increased urine frequency Allergies and Home Medications Allergies Coded Allergies: No Known Drug Allergies (Unverified , 01/07/20) Patient Home Medication List Home Medication List Reviewed: Yes Albuterol Sulfate (Ventolin Hfa) 90 Mcg Hfa.aer.ad, 18 GM INH Q6H PRN for SHORTNESS OF BREATH Prescribed by: MAMADOU HUMPHRIES on 01/06/23 0218 Atorvastatin Calcium (Lipitor) 40 Mg Tablet, 40 MG PO HS Prescribed by: BON GRAFF on 01/09/20 1112 Azithromycin (Azithromycin) 250 Mg Tablet, 250 MG PO UD Prescribed by: CHARLI CRUM on 01/07/23 1530 Metformin HCl (Metformin HCl) 500 Mg Tablet, 1,000 MG PO BID Prescribed by: BON GRAFF on 01/09/20 1109 Review of Systems Review of Systems Constitutional: chills, fever, malaise, weakness EENTM: No hearing loss, No ear pain, No blurred vision, No vision loss, No mouth pain, No mouth swelling Respiratory: cough, short of breath Cardiovascular: No chest pain Gastrointestinal: abdominal pain; No diarrhea; nausea, vomiting Genitourinary: No decreased output, No discharge Musculoskeletal: No back pain, No joint pain Skin: No change in color, No change in hair/nails All Other Systems Reviewed Negative Unless Noted: Yes Past Flcoflk-Sgqxlr-Ybjzwn Hx Patient Social History Tobacco Use?: No Substance use?: No Alcohol Use?: No Pt feels they are or have been: No Immunizations Up To Date PED Vaccines UTD: Yes Seasonal Allergies Seasonal Allergies: No Past Medical History Surgeries: No Respiratory: No Cardiac: No Neurological: No Genitourinary: No Gastrointestinal: No Musculoskeletal: No Endocrine: No HEENT: No Cancer: No Psychosocial: No Integumentary: No Family Medical History Diabetes mellitus G8 BROTHER (PATIENT A POOR HISTORIAN. UNABLE TO RECALL INFORMATION.) Physical Exam Vital Signs - First Documented 01/07/23 14:05 Temp 39.1 Pulse 118 Resp 20 B/P (MAP) 103/60 (74) Pulse Ox 94 O2 Delivery Room Air Capillary Refill : Less Than 3 Seconds Height: '" Weight: lbs. oz. kg; 39.00 BMI Method: General Appearance: WD/WN, no apparent distress Eyes: Bilateral Eye Normal Inspection, Bilateral Eye PERRL, Bilateral Eye EOMI HEENT: PERRL/EOMI, normal ENT inspection, TMs normal, pharynx normal Neck: non-tender, full range of motion, supple Respiratory: chest non-tender, lungs clear, normal breath sounds, no respiratory distress Cardiovascular: no edema, no gallop, no JVD, tachycardia Gastrointestinal: normal bowel sounds, non tender, soft Extremities: normal range of motion, non-tender, normal inspection, no pedal edema Neurologic/Psychiatric: life advisor II-XII nml as tested, no motor/sensory deficits, alert, normal mood/affect, oriented x 3 Skin: normal color, warm/dry Focused Exam Lactate Level 01/07/23 14:42: Lactic Acid Level 1.85 Lactic Acid Level Laboratory Tests Test 01/07/23 14:42 Lactic Acid Level 1.85 MMOL/L (0.50-2.00) Progress/Results/Core Measures Suspected Sepsis SIRS Temperature: Pulse: 118 Respiratory Rate: 20 Laboratory Tests 01/07/23 14:42: White Blood Count 6.8 Blood Pressure 103 /60 Mean: 74 01/07/23 14:42: Lactic Acid Level 1.85 Laboratory Tests 01/07/23 14:42: Creatinine 0.81, Platelet Count 162, Total Bilirubin 0.9 Results/Orders Lab Results Laboratory Tests Test 01/07/23 14:26 01/07/23 14:42 Range/Units SARS-CoV-2 RNA (RT-PCR) Not Detected Not Detecte White Blood Count 6.8 4.3-11.0 10^3/uL Red Blood Count 4.11 L 4.30-5.52 10^6/uL Hemoglobin 12.8 L 13.3-17.7 g/dL Hematocrit 36 L 40-54 % Mean Corpuscular Volume 88 80-99 fL Mean Corpuscular Hemoglobin 31 25-34 pg Mean Corpuscular Hemoglobin Concent 35 32-36 g/dL Red Cell Distribution Width 12.1 10.0-14.5 % Platelet Count 162 130-400 10^3/uL Mean Platelet Volume 10.7 9.0-12.2 fL Immature Granulocyte % (Auto) 0 % Neutrophils (%) (Auto) 70 42-75 % Lymphocytes (%) (Auto) 13 12-44 % Monocytes (%) (Auto) 17 H 0-12 % Eosinophils (%) (Auto) 0 0-10 % Basophils (%) (Auto) 0 0-10 % Neutrophils # (Auto) 4.8 1.8-7.8 10^3/uL Lymphocytes # (Auto) 0.9 L 1.0-4.0 10^3/uL Monocytes # (Auto) 1.2 H 0.0-1.0 10^3/uL Eosinophils # (Auto) 0.0 0.0-0.3 10^3/uL Basophils # (Auto) 0.0 0.0-0.1 10^3/uL Immature Granulocyte # (Auto) 0.0 0.0-0.1 10^3/uL Sodium Level 133 L 135-145 MMOL/L Potassium Level 3.8 3.6-5.0 MMOL/L Chloride Level 100 98-107 MMOL/L Carbon Dioxide Level 24 21-32 MMOL/L Anion Gap 9 5-14 MMOL/L Blood Urea Nitrogen 18 7-18 MG/DL Creatinine 0.81 0.60-1.30 MG/DL Estimat Glomerular Filtration Rate 115 BUN/Creatinine Ratio 22 Glucose Level 130 H 70-105 MG/DL Lactic Acid Level 1.85 0.50-2.00 MMOL/L Calcium Level 8.3 L 8.5-10.1 MG/DL Corrected Calcium 8.7 8.5-10.1 MG/DL Total Bilirubin 0.9 0.1-1.0 MG/DL Aspartate Amino Transf (AST/SGOT) 21 5-34 U/L Alanine Aminotransferase (ALT/SGPT) 29 0-55 U/L Alkaline Phosphatase 77 40-136 U/L C-Reactive Protein High Sensitivity 6.40 H 0.00-0.50 MG/DL Total Protein 6.2 L 6.4-8.2 GM/DL Albumin 3.5 3.2-4.5 GM/DL Monoscreen NEGATIVE NEGATIVE My Orders Orders - ANDREW CARPENTER Cbc With Automated Diff (01/07/23 14:18) Comprehensive Metabolic Panel (01/07/23 14:18) Hs C Reactive Protein (01/07/23 14:18) Ns Iv 1000 Ml (Sodium Chloride 0.9%) (01/07/23 14:18) Ondansetron Injection (Zofran Injectio (01/07/23 14:30) Acetaminophen Tablet (Acetaminophen Ta (01/07/23 14:30) Lactic Acid Analyzer (01/07/23 14:18) Monotest (01/07/23 14:18) Covid 19 Inhouse Test (01/07/23 14:18) Ua Culture If Indicated (01/07/23 14:25) Ed Iv/Invasive Line Start (01/07/23 14:44) Ibuprofen Tablet (Motrin Tablet) (01/07/23 15:30) Medications Given in ED Current Medications Medications Dose Ordered Sig/Janet Route Start Time Stop Time Status Last Admin Dose Admin Acetaminophen 1,000 mg ONCE ONCE PO 01/07/23 14:30 01/07/23 14:31 DC 01/07/23 14:35 1,000 MG Ibuprofen 800 mg ONCE ONCE PO 01/07/23 15:30 01/07/23 15:31 DC 01/07/23 15:34 800 MG Ondansetron HCl 4 mg ONCE ONCE IVP 01/07/23 14:30 01/07/23 14:31 DC 01/07/23 14:34 4 MG Vital Signs/I&O 01/07/23 01/07/23 01/07/23 01/07/23 14:05 14:35 15:34 15:35 Temp 39.1 37.5 38.9 38.9 Pulse 118 79 Resp 20 18 B/P (MAP) 103/60 (74) 133/86 Pulse Ox 94 98 O2 Delivery Room Air Room Air Capillary Refill : Less Than 3 Seconds Blood Pressure Mean: 74 Departure Communication (PCP) Patient with flulike symptoms. Patient was seen here yesterday had lab work and swabs. Patient with cough, weakness fatigue fever headache and vomiting. Patient denies of any specific pain. Reports generalized pain. Patient was slightly tachycardic and febrile. Initiated lab work added a COVID and mono. Patient had general lab work yesterday found to be dehydrated with a sodium of 131 did receive a liter of fluid with some improvement of symptoms. Attempted to work last night symptoms became worse. Continue cough even with his albuterol inhaler. No history of asthma, COPD or coronary artery disease. No evidence of respiratory distress. Room air 99%. Soft abdomen. Patient without any cramping. CBC, CMP, lactic acid, CRP and urinalysis was ordered as well. CBC was grossly unremarkable with normal white blood count. CMP showed improvement of sodium 133. Did receive a bag of normal saline here. Patient received Zofran for the nausea and vomiting. Tylenol for the fever as his temperature was 102. He had no meningeal signs. After liter of fluids symptoms improved. COVID and mono was negative. Lung sounds clear bilateral. Soft abdomen without any specific tenderness. Patient did receive ibuprofen as he still remained a low-grade temperature. Patient states he feels much better to go home. He does not work until Thursday. Suggest resting for the next 2 or 3 days. Recommend hydration with Pedialyte and water. Alternate Tylenol ibuprofen. Discussed with patient that this is likely viral. Patient does not appear toxic. Improvement of his heart rate. Patient is recommended follow-up with PCP in 2 to 3 days for reevaluation. If any worsening symptoms return back to ED Impression Primary Impression: Upper respiratory infection Disposition: HOME, SELF-CARE Condition: Stable Departure-Patient Inst. Decision time for Depature: 15:29 Referrals: DEBBIE CM DO (PCP/Family) Primary Care Physician Patient Instructions: Upper Respiratory Infection ED Add. Discharge Instructions: Recommend staying hydrated. Continue with Tylenol and or ibuprofen for fevers and body pains. Rest for the next 2 to 3 days. If any worsening symptoms such as shortness of breath or weakness to return back to ED. Follow-up your PCP in 2 to 3 days for reevaluation. All discharge instructions reviewed with patient and/or family. Voiced understanding. Scripts Azithromycin (Azithromycin) 250 Mg Tablet 250 MG PO UD, #6 TAB TAKE 2 TABLETS ON DAY ONE THEN TAKE 1 TABLET DAILY FOR FOUR MORE DAYS Prov: ANDREW CARPENTER 01/07/23 Work/School Note: Work Release Form Date Seen in the Emergency Department: Jan 07, 2023 Return to Work: Jan 11, 2023 ANDREW CARPENTER Jan 07, 2023 14:23
[2023-01-07] MEDS ORDERED: ONDANSETRON 4 MG/2 ML (SDV) Z0FRAN IVP ONE (14:30)
[2023-01-07] MEDS ORDERED: ACETAMINOPHEN 500 MG TABLET PO ONE (14:30)
[2023-01-07 14:50] LABS: BASOPHILS % (AUTO) 0 % (0-10); EOSINOPHILS % (AUTO) 0 % (0-10); HEMATOCRIT 36 % (40-54); HEMOGLOBIN 12.8 g/dL (13.3-17.7); LYMPHOCYTES # (AUTO) 0.9 10^3/uL (1.0-4.0); LYMPHOCYTES % (AUTO) 13 % (12-44); MEAN CORPUSCULAR HEMOGLOBIN 31 pg (25-34); MEAN CORPUSCULAR HGB CONC 35 g/dL (32-36); MEAN CORPUSCULAR VOLUME 88 fL (80-99); MEAN PLATELET VOLUME 10.7 fL (9.0-12.2); MONOCYTES # (AUTO) 1.2 10^3/uL (0.0-1.0); MONOCYTES % (AUTO) 17 % (0-12); NEUTROPHILS # (AUTO) 4.8 10^3/uL (1.8-7.8); NEUTROPHILS % (AUTO) 70 % (42-75); PLATELET COUNT 162 10^3/uL (130-400); WHITE BLOOD COUNT 6.8 10^3/uL (4.3-11.0)
[2023-01-07 15:03] LABS: ALBUMIN 3.5 GM/DL (3.2-4.5); POTASSIUM 3.8 MMOL/L (3.6-5.0)
[2023-01-07 15:04] LABS: CALCIUM 8.3 MG/DL (8.5-10.1)
[2023-01-07 15:06] LABS: TOTAL PROTEIN 6.2 GM/DL (6.4-8.2)
[2023-01-07 15:08] LABS: BILIRUBIN,TOTAL 0.9 MG/DL (0.1-1.0)
[2023-01-07 15:10] LABS: CREATININE SERUM 0.81 MG/DL (0.60-1.30)
[2023-01-07] MEDS ORDERED: AZIT250T12 PO (15:30)
[2023-01-07] MEDS ORDERED: IBUPROFEN 800 MG (MOTRIN) TAB PO ONE (15:30)
[2023-01-07 15:35] VITALS: BP 133/86
== END 2023-01-07 15:35 | disposition home or self-care (01) ==
LOC: EDUNIT# 13:59 → ER 14:01
DX: J06.9 Acute upper respiratory infection, unspecified (principal); J20.8 Acute bronchitis due to other specified organisms; B97.89 Other viral agents as the cause of diseases classified elsewhere; Z20.822 Contact with and (suspected) exposure to COVID-19
CPT/HCPCS: 36415; 80053; 83605; 85025; 86141; 86308; 87636; 96361; 96374